=== PATIENT | female | born 1990 ===

== ENCOUNTER 2019-10-12 21:52 | Emergency (ER) | payer SELFPAY | END 2019-10-12 23:59 | disposition left against medical advice (07) | LOC: ED 21:52 | DX: S61.411A Laceration without foreign body of right hand, initial encounter (principal); Z53.21 Procedure and treatment not carried out due to patient leaving prior to being seen by health care provider; X58.XXXA Exposure to other specified factors, initial encounter; Y93.89 Activity, other specified; Y92.89 Other specified places as the place of occurrence of the external cause; Y99.8 Other external cause status ==